=== PATIENT | male | born 2000 | race African-American/Black ===

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

== ENCOUNTER 2020-05-08 08:57 | Emergency (ER) | payer OTHER ==
[2020-05-10 11:43] LABS: SARS-CoV-2 MS2 Positive; SARS-CoV-2 N Gene Negative; SARS-CoV-2 S Gene Negative; SARS-CoV-2 orf1ab Negative
== END 2020-05-08 10:00 | disposition home or self-care (01) ==
LOC: NAV ERS 08:57
DX: J30.9 Allergic rhinitis, unspecified (principal); Z20.828 Contact with and (suspected) exposure to other viral communicable diseases; F17.220 Nicotine dependence, chewing tobacco, uncomplicated
CPT/HCPCS: 87635; 99283; U0003

== ENCOUNTER 2021-05-06 20:35 | Emergency (ER) | payer OTHER | END 2021-05-06 21:40 | disposition home or self-care (01) | LOC: NAV ERS 20:35 | DX: R30.0 Dysuria (principal); F17.220 Nicotine dependence, chewing tobacco, uncomplicated | CPT/HCPCS: 99281 ==